=== PATIENT | female | born 1955 | race Caucasian/White ===

== ENCOUNTER 2016-02-27 15:15 | Outpatient (RCR) | payer OTHER ==
[~2016-02-27 15:15] MED LIST: IBUPROFEN200 M2 PO; LEVOTHYROXINE0.1 MG PO; LIPITOR40 MG PO; WELLBUTRIN SR200 MG PO; ZYRTEC10 MG PO
== END 2016-03-09 12:41 | disposition still patient (30) ==
LOC: WSPT 15:15
DX: M48.06 Spinal stenosis, lumbar region (principal); G62.89 Other specified polyneuropathies

== ENCOUNTER → 2018-01-13 | Outpatient (REF) ==
[2018-01-13 17:14] LABS: THYROID STIMULATING HORMONE 2.26 uIU/mL (0.465-4.680)
== END ==
LOC: ZLAB.WCH 16:32
PROVIDERS: Physician Assistant
DX: Z01.89 Encounter for other specified special examinations (principal)

== ENCOUNTER → 2018-07-03 | Outpatient (CLI) | payer OTHER | LOC: COL.RAD 07:21 | DX: Z01.812 Encounter for preprocedural laboratory examination (principal); M48.061 Spinal stenosis, lumbar region without neurogenic claudication; M51.36 Other intervertebral disc degeneration, lumbar region; G62.9 Polyneuropathy, unspecified; M12.88 Other specific arthropathies, not elsewhere classified, other specified site | CPT/HCPCS: A9585 ==